=== PATIENT | male | born 1970 | race Caucasian/White ===

== ENCOUNTER 2020-04-17 08:54 | Outpatient (REF) | payer MEDICARE, SELFPAY ==
[2020-04-17 10:49] LABS: Alanine Aminotransferase 25 U/L (0-40); Albumin Level 4.3 g/dL (3.5-5.0); Alkaline Phosphatase 60 U/L (39-117); Anion Gap 11 (12-20); Aspartate Amino Transferase 21 U/L (5-37); Bilirubin Total 1.2 mg/dL (0.0-1.0); Blood Urea Nitrogen 16 mg/dL (9-16); Carbon Dioxide 30 mmol/L (22-29); Chloride 101 mmol/L (96-108); Cholesterol 120 mg/dL; Estimated Glomerular Filt Rate > 60; Glucose Fasting 100 mg/dL (60-99); HDL Cholesterol 44 mg/dL; LDL Cholesterol Calculated 68 mg/dl; Potassium 4.2 mmol/l (3.3-5.1); Sodium 138 mmol/L (135-145); Total Protein 7.3 g/dL (6.5-8.0); Triglycerides 44 mg/dL
[2020-04-17 10:54] LABS: Creatinine Urine 15.39 mg/dL; Microalbumin Urine < 5.0 mg/L
== END 2020-04-17 08:55 | disposition home or self-care (01) ==
LOC: HO.10HDL 08:54
PROVIDERS: Visit Provider Internal Medicine
DX: E11.9 Type 2 diabetes mellitus without complications (principal); E78.00 Pure hypercholesterolemia, unspecified
CPT/HCPCS: 80053; 80061; 82043

== ENCOUNTER 2020-11-13 08:55 | Outpatient (REF) | payer MEDICARE, MEDICAID, SELFPAY ==
[2020-11-13 10:24] LABS: MANUAL DIFF FLAG NO
[2020-11-13 10:31] LABS: Basophils Percent Auto 0.6 % (0-2); Eosinophils Absolute Auto 0.1 X10*3/uL (0.0-0.4); Eosinophils Percent Auto 2.6 % (0-4); Hematocrit 42.7 % (42-52); Hemoglobin 13.9 g/dl (14.0-18.0); Imm Gran Abs Auto 0.02 X10*3/uL (0.00-0.03); Imm Gran Pct Auto 0.4 % (0.0-0.4); Lymphocytes Absolute Auto 1.3 X10*3/uL (1.2-4.9); Lymphocytes Percent Auto 26.2 % (20-40); Mean Corpuscular HGB Conc 32.6 g/dl (31.0-36.0); Mean Corpuscular Hemoglobin 29.9 pg (27.0-33.0); Mean Corpuscular Volume 91.8 fL (80-98); Monocytes Absolute Auto 0.5 X10*3/uL (0.1-1.2); Monocytes Percent Auto 10.1 % (2-11); Neutrophils Percent Auto 60.1 % (45-73); Platelet Count 227 X10*3/uL (160-400); Red Blood Count 4.65 X10*6/uL (4.60-5.80)
[2020-11-13 10:43] LABS: Alanine Aminotransferase 23 U/L (0-40); Albumin Level 4.4 g/dL (3.5-5.0); Alkaline Phosphatase 65 U/L (39-117); Anion Gap 13 (12-20); Aspartate Amino Transferase 25 U/L (5-37); Bilirubin Total 1.6 mg/dL (0.0-1.0); Blood Urea Nitrogen 12 mg/dL (9-16); Calcium 9.7 mg/dL (8.4-10.2); Carbon Dioxide 29 mmol/L (22-29); Chloride 101 mmol/L (96-108); Cholesterol 113 mg/dL; Estimated Glomerular Filt Rate > 60; Glucose Fasting 99 mg/dL (60-99); HDL Cholesterol 43 mg/dL; LDL Cholesterol Calculated 57 mg/dl; Potassium 4.2 mmol/L (3.3-5.1); Sodium 139 mmol/L (135-145); Total Protein 7.5 g/dL (6.5-8.0); Triglycerides 66 mg/dL
[2020-11-13 10:55] LABS: Microalbumin Urine < 5.0 mg/L
[2020-11-18 11:52] LABS: Vitamin D 25-OH, D2 <4 ng/mL; Vitamin D 25-OH, D3 24 ng/mL; Vitamin D 25-OH, Total 24 ng/mL (30-100)
== END 2020-11-13 08:56 | disposition home or self-care (01) ==
LOC: HO.10HDL 08:55
PROVIDERS: Visit Provider Internal Medicine
DX: E11.9 Type 2 diabetes mellitus without complications (principal); E78.5 Hyperlipidemia, unspecified; E55.9 Vitamin D deficiency, unspecified; D64.9 Anemia, unspecified; K21.9 Gastro-esophageal reflux disease without esophagitis
CPT/HCPCS: 36415; 80053; 80061; 82043; 82306; 85025

== ENCOUNTER 2021-06-10 10:42 | Outpatient (REF) | payer MEDICARE, MEDICAID, SELFPAY ==
[2021-06-10 14:12] LABS: Estimated Average Glucose 126 mg/dL
[2021-06-10 14:23] LABS: Prostate Specific Antigen Scr 0.39 ng/mL (<0.05-4.0)
== END 2021-06-10 10:43 | disposition home or self-care (01) ==
LOC: HO.10HDL 10:42
PROVIDERS: Visit Provider Nurse Practitioner Family
DX: E11.9 Type 2 diabetes mellitus without complications (principal); Z12.5 Encounter for screening for malignant neoplasm of prostate
CPT/HCPCS: 36415; 83036; 84153

== ENCOUNTER → 2021-09-02 14:07 | Outpatient (BNVA) | payer MEDICARE, MEDICAID, SELFPAY | PROVIDERS: PCP Internal Medicine; Referring Provider Internal Medicine; Visit Provider Nurse Practitioner Family | DX: Z12.11 Encounter for screening for malignant neoplasm of colon (principal); K21.9 Gastro-esophageal reflux disease without esophagitis | CPT/HCPCS: 99202 ==

== ENCOUNTER 2021-12-23 10:24 | Outpatient (REF) | payer MEDICARE, MEDICAID, SELFPAY ==
[2021-12-23 14:11] LABS: Alanine Aminotransferase 38 U/L (0-40); Albumin Level 4.3 g/dL (3.5-5.0); Alkaline Phosphatase 66 U/L (39-117); Anion Gap 15 (12-20); Aspartate Amino Transferase 27 U/L (5-37); Bilirubin Total 1.5 mg/dL (0.0-1.0); Blood Urea Nitrogen 12 mg/dL (9-16); Carbon Dioxide 25 mmol/L (22-29); Chloride 103 mmol/L (96-108); Cholesterol 125 mg/dL; Estimated Glomerular Filt Rate > 60; Glucose Random 102 mg/dL (60-115); HDL Cholesterol 46 mg/dL; LDL Cholesterol Calculated 65 mg/dl; Potassium 4.3 mmol/L (3.3-5.1); Sodium 139 mmol/L (135-145); Total Protein 7.3 g/dL (6.5-8.0); Triglycerides 71 mg/dL
[2021-12-23 14:26] LABS: Thyroid Stimulating Hormone 0.97 uIU/mL (0.32-4.0); Vitamin D 25-OH Total 28.6 ng/mL (>30)
[2021-12-23 14:49] LABS: Creatinine Urine 35.44 mg/dL; Microalbumin Urine < 5.0 mg/L
== END 2021-12-23 10:25 | disposition home or self-care (01) ==
LOC: HO.10HDL 10:24
PROVIDERS: Visit Provider Internal Medicine
DX: L65.9 Nonscarring hair loss, unspecified (principal); E78.5 Hyperlipidemia, unspecified; E55.9 Vitamin D deficiency, unspecified; E11.9 Type 2 diabetes mellitus without complications
CPT/HCPCS: 36415; 80053; 80061; 82043; 82306; 84443

== ENCOUNTER 2022-09-16 09:01 | Outpatient (REF) | payer MEDICARE, MEDICAID, SELFPAY ==
[2022-09-16 11:02] LABS: Estimated Average Glucose 126 mg/dL
[2022-09-16 11:16] LABS: Alanine Aminotransferase 98 U/L (0-40); Albumin Level 4.1 g/dL (3.5-5.0); Alkaline Phosphatase 70 U/L (39-117); Anion Gap 15 (12-20); Aspartate Amino Transferase 71 U/L (5-37); Bilirubin Total 1.3 mg/dL (0.0-1.0); Blood Urea Nitrogen 11 mg/dL (9-16); Calcium 9.5 mg/dL (8.4-10.2); Carbon Dioxide 27 mmol/L (22-29); Chloride 100 mmol/L (96-108); Cholesterol 140 mg/dL; Estimated Glomerular Filt Rate > 60; Glucose Random 113 mg/dL (60-115); HDL Cholesterol 44 mg/dL; LDL Cholesterol Calculated 80 mg/dl; Potassium 4.4 mmol/L (3.3-5.1); Sodium 138 mmol/L (135-145); Total Protein 7.3 g/dL (6.5-8.0); Triglycerides 82 mg/dL
[2022-09-16 11:20] LABS: Vitamin D 25-OH Total 25.4 ng/mL (>30)
== END 2022-09-16 09:02 | disposition home or self-care (01) ==
LOC: HO.10HDL 09:01
PROVIDERS: Visit Provider Nurse Practitioner Family
DX: E78.00 Pure hypercholesterolemia, unspecified (principal); R79.89 Other specified abnormal findings of blood chemistry; E11.9 Type 2 diabetes mellitus without complications; E55.9 Vitamin D deficiency, unspecified
CPT/HCPCS: 36415; 80053; 80061; 82306; 83036

== ENCOUNTER 2022-10-23 09:54 | Outpatient (REF) | payer MEDICARE, MEDICAID, SELFPAY ==
--- NOTE | ~2022-10-23 | US_ITS ---
EXAMINATION: US ABDOMEN LIMITED CLINICAL INFORMATION: Other specified abnormal findings of blood chemistry. COMPARISON: Ultrasound abdomen 10/23/2013 and 07/31/2008. TECHNIQUE: Real-time imaging of the right upper quadrant abdominal viscera. Limited visualization due to bowel gas and body habitus. FINDINGS: PANCREAS: Limited visualization. LIVER: Hepatomegaly, 17.6 cm. Diffuse increase in echogenicity of the liver is characteristic of primary hepatocellular disease, possibly due to hepatic steatosis and further limits visualization. GALLBLADDER: No gallstones. COMMON BILE DUCT: Not visualized. RIGHT KIDNEY: No hydronephrosis. No renal calculi. Limited visualization. The kidney measures 11.5 cm in maximum dimension. FREE FLUID: None. US/US abdomen limited IMPRESSION: 1. Hepatomegaly, 17.6 cm. Diffuse increase in echogenicity of the liver is characteristic of primary hepatocellular disease, possibly due to hepatic steatosis and further limits visualization. 2. Limited visualization due to bowel gas and body habitus. CT scan should be considered for better visualization.
== END 2022-10-23 09:55 | disposition home or self-care (01) ==
LOC: HO.US 09:54
PROVIDERS: PCP Internal Medicine; Visit Provider Nurse Practitioner Family
DX: R79.89 Other specified abnormal findings of blood chemistry (principal)
CPT/HCPCS: 76705

== ENCOUNTER 2022-12-10 09:19 | Outpatient (REF) | payer MEDICARE, MEDICAID, SELFPAY ==
[2022-12-10 11:18] LABS: HBc Num1 0.07 S/CO (0.00-0.79); Hepatitis A Antibody IgM 0.21 Index (0-0.79); Hepatitis B Core Antibody Nonreactive (Nonreactive); Hepatitis B Surface Antigen Negative (Negative); ~HepC Num1 0.05 S/CO (0.00-0.79); ~Hepatitis A Antibody IgM Nonreactive (Nonreactive); ~Hepatitis B Surface Antibody REACTIVE (Nonreactive); ~Hepatitis C Antibody Nonreactive (Nonreactive)
[2022-12-10 11:27] LABS: Prostate Specific Antigen 0.47 ng/mL (<0.05-4.0)
== END 2022-12-10 09:20 | disposition home or self-care (01) ==
LOC: HO.LAB 09:19
PROVIDERS: PCP Internal Medicine; Visit Provider Nurse Practitioner Family
DX: Z12.5 Encounter for screening for malignant neoplasm of prostate (principal); R79.89 Other specified abnormal findings of blood chemistry
CPT/HCPCS: 36415; 84153; 86704; 86706; 86709; 86803; 87340

== ENCOUNTER 2022-12-16 10:55 | Outpatient (AMB) | payer MEDICARE, MEDICAID, SELFPAY ==
--- NOTE | 2022-12-16 11:04 | MHC.PC.OV ---
Vital Signs 12/16/22 11:05 12/16/22 11:44 Height 5 ft 5 in Weight 184 lb BMI 30.6 BP 96/60 108/70 Blood Pressure Location Lt brachial Lt brachial Position Sitting Sitting Pulse 112 H Pulse Source Pulse Oximeter Temp Source Skin Pulse Oximetry (%) 97 Oxygen Delivery Method Room Air Intake Visit Reasons: 3 month f/u Collections Director Required: Yes Collections Director Language: Mongolian Allergies No Known Allergies Allergy (Verified 12/16/22 11:33) Medication List - Last Reconciled 12/16/22 by MARIE Guaman atorvastatin 40 mg PO DAILY bisacodyl (Dulcolax (bisacodyl)) 10 mg (2 x 5 mg) PO ONCE 1 day blood sugar diagnostic (FreeStyle Lite Strips) Use 1 test strip once a day blood sugar diagnostic (Accu-Chek Guide test strips) Use 1 test strip once a day blood-glucose meter (FreeStyle Lite Meter kit) As directed blood-glucose meter (Accu-Chek Guide Glucose Meter) As directed cholecalciferol (vitamin D3) 25 mcg PO DAILY 90 days fluticasone propionate 50 mcg/actuation (Flonase Allergy Relief) 1 spray intranasal DAILY 14 days lancets (FreeStyle Lancets) Use 1 lancet once a day lancets (Accu-Chek Softclix Lancets) Use 1 lancet once a day lisinopril 2.5 mg PO DAILY metformin 500 mg PO BID omeprazole 20 mg PO DAILY polyethylene glycol 3350 (Miralax) 238 grams PO ONCE risperidone 4 mg PO DAILY Tobacco use date assessed: 12/16/22 Dental Screening Dental Screen Date: 12/16/22 Did you have a dental visit in the last 12 months?: Yes Did you have a dental problem in the last 6 months where you did not have access to dental care?: No Was dental information given to patient?: Patient has dentist HPI 3 month f/u HPI Details Patient is a 52-year-old male who presents today for a routine follow-up.? Patient of Dr. Ospina.? Medical history significant for low vitamin-D level, depression, hypertension, developmental delay, GERD, hypercholesterolemia, and diabetes.? Patient is compliant with medications. Patient denies shortness of breath or chest pain.? Patient reports that he is followed by therapist and psychiatrist for his mental health.? Recent blood work was reviewed with the patient.? 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 ? ? [facility] Medical History Depression Developmental delay, mild Diabetes mellitus Essential hypertension GERD (gastroesophageal reflux disease) Hair loss Mild recurrent major depression Pure hypercholesterolemia Surgical History No pertinent past surgical history Family History Father Prostate cancer Mother Hypertension Family/Other FH: mental illness Maternal Grandmother No problems noted. Maternal Grandfather No problems noted. Paternal Grandmother No problems noted. Paternal Grandfather No problems noted. Social History Housing: Apartment Alcohol intake: never Patient Tobacco Use Status: Never used Tobacco e-Cigarette/Vaping Use: Never Used Second Hand Smoke Exposure: No service: No Current occupational status: disabled Cognitive needs: No Hearing needs: No Vision needs: No Questionnaire Thrive Questionnaire Date Thrive assessed: 09/16/22 AUDIT C Alcohol Use Questionnaire (AUDIT-C) 1. How often do you have a drink containing alcohol?: Never 3. How often do you have six or more drinks on one occasion?: Never Total Score: 0 Score Reviewed/Action Taken: No FABIENNE-7 AMB Questionnaire FABIENNE-7 Date FABIENNE - 7 assessed: 09/16/22 Source: Developed by Drs. Brandon Kim, Megan Murrieta, Vic Reyez and colleagues, with an educational nicholas from [employer]. Review of Systems Const Denies body aches, Denies chills, Denies fever(s) and Denies headache(s) Eyes Denies change in vision ENT Denies dizziness, Denies otalgia, Denies headache(s), Denies nasal discharge, Reports post nasal drip, Denies sinus pain and Denies sore throat Card Denies chest pain, Denies edema, Denies lightheadedness and Denies dyspnea Resp Denies chest congestion, Denies cough and Denies dyspnea GI Denies abdominal pain, Denies constipation, Denies diarrhea, Denies nausea and Denies vomiting Denies dysuria Musc Denies myalgias Skin/Breast Denies rash Neuro Denies dizziness and Denies headache(s) Physical exam (Primary Care) Vital Signs: Last Vital Signs Pulse 112 H 12/16/22 11:05 BP 96/60 12/16/22 11:05 Pulse Ox 97 12/16/22 11:05 Oxygen Delivery Method Room Air 12/16/22 11:05 BMI result Body Mass Index 30.6 Tobacco/Smoking Status: Tobacco use Status Tobacco use date assessed 12/16/22 12/16/22 11:12 Patient Tobacco Use Status Never used Tobacco 12/16/22 11:12 Tobacco use type 06/04/22 15:18 e-Cigarette/Vaping Use Never Used 12/16/22 11:12 Thrive Assessment: Date of Thrive Assessment Date Thrive assessed 09/16/22 12/16/22 11:12 Const General: cooperative and no acute distress Orientation/consciousness: patient oriented x3 HENMT Head: Yes normocephalic and Yes atraumatic Throat: Yes posterior oropharynx normal Eyes General: appearance normal, both eyes and all related structures Neck Neck: Yes normal visual inspection, Yes full ROM and Yes no lymphadenopathy Resp Effort & Inspection: normal respiratory effort and able to speak in complete sentences Auscultation: clear to auscultation bilaterally, no crackles, no rales, no rhonchi and no wheezes Cardio Rate: regular rate Rhythm: regular rhythm Heart sounds: S1 normal heart sound present and S2 normal heart sound present GI Auscultation: normal bowel sounds Skin General skin exam: no rashes or lesions noted Neuro General: patient oriented x3 Gait exam (Neuro): Normal gait present Extrem General: Yes full ROM and No edema Results AMB Hemoglobin A1c AMB Hemoglobin A1c 6.3 % Last Edit by HELEN Pompa on 12/16/22 11:27 Results Reviewed Results Reviewed: Laboratory Last Values Hgb A1c (Clinic) 6.3 % (4.0-6.0) H 12/16/22 10:59 Assessment and Plan Assessment & Plan (1) Essential hypertension: Code(s): I10 - Essential (primary) hypertension Plan: Continue current treatment Goal BP equal or less than 140/90 Low-sodium diet (2) Depression: Code(s): F32.9 - Major depressive disorder, single episode, unspecified Qualifiers: Depression Type: major depressive disorder Major depression recurrence: recurrent Active/Remission status: currently active Major depression episode severity: mild Qualified Code(s): F33.0 - Major depressive disorder, recurrent, mild Plan: Continue to follow-up with therapy and psychiatrist (3) GERD (gastroesophageal reflux disease): Code(s): K21.9 - Gastro-esophageal reflux disease without esophagitis Qualifiers: Esophagitis presence: esophagitis presence not specified Qualified Code(s): K21.9 - Gastro-esophageal reflux disease without esophagitis Plan: Continue omeprazole 20 mg daily Avoid GERD trigger foods Do not lay down 2-3 hours after evening meal (4) Pure hypercholesterolemia: Code(s): E78.00 - Pure hypercholesterolemia, unspecified Plan: Continue atorvastatin 40 mg daily Low-cholesterol diet (5) Diabetes mellitus: Code(s): E11.9 - Type 2 diabetes mellitus without complications Qualifiers: Diabetes mellitus type: type 2 Diabetes mellitus group home insulin use: without watermelon inspector use Diabetes mellitus complication status: without complication Qualified Code(s): E11.9 - Type 2 diabetes mellitus without complications Plan: A1c 6.3 today Continue current treatment Low-carbohydrate diet (6) Hepatomegaly: Code(s): R16.0 - Hepatomegaly, not elsewhere classified Plan: Will follow-up on GI referral. Plan Follow-up with PCP in 4 months or sooner as needed Orders: Orders Comprehensive [place]. Panel Fast Today E11.9 - Type 2 diabetes mellitus without complications Lipid Panel Today E11.9 - Type 2 diabetes mellitus without complications TSH reflex Free T4 Today E11.9 - Type 2 diabetes mellitus without complications Microalbumin, Random (w Creat) Today E11.9 - Type 2 diabetes mellitus without complications AMB Hemoglobin A1c Today E11.9 - Type 2 diabetes mellitus without complications Medications: Refilled fluticasone propionate 50 mcg/actuation (Flonase Allergy Relief) administer into each nostril 1 spray intranasal DAILY 14 days 100 mL 0RF J30.9 - Allergic rhinitis, unspecified Coding Level of Care Code Est Pt Level 4 (02385) Diagnoses Essential hypertension I10 Depression F33.0 Depression Type: major depressive disorder Major depression recurrence: recurrent Active/Remission status: currently active Major depression episode severity: mild GERD (gastroesophageal reflux disease) K21.9 Esophagitis presence: esophagitis presence not specified Pure hypercholesterolemia E78.00 Diabetes mellitus E11.9 Diabetes mellitus type: type 2 Diabetes mellitus group home insulin use: without watermelon inspector use Diabetes mellitus complication status: without complication Hepatomegaly R16.0
[2022-12-16 11:05] VITALS: BP 96/60; PULSE 112; O2SAT 97; BMI 30.6
[2022-12-16 11:44] VITALS: BP 108/70
== END 2022-12-16 11:52 | disposition home or self-care (01) ==
PROVIDERS: PCP Internal Medicine; Visit Provider Nurse Practitioner Family
DX: I10 Essential (primary) hypertension (principal); F33.0 Major depressive disorder, recurrent, mild; K21.9 Gastro-esophageal reflux disease without esophagitis; E11.9 Type 2 diabetes mellitus without complications; E78.00 Pure hypercholesterolemia, unspecified; R16.0 Hepatomegaly, not elsewhere classified
CPT/HCPCS: 83036; 99214

== ENCOUNTER 2023-02-08 08:56 | Outpatient (AMB) | payer MEDICARE, MEDICAID, SELFPAY ==
--- NOTE | 2023-02-08 08:58 | A.OFFVIS_ITS ---
Intake Vital Signs 02/08/23 08:59 Height 5 ft 5 in Weight 190 lb 7.67 oz BMI 31.7 BP 118/78 Blood Pressure Location Lt brachial Position Sitting Pulse 122 H Intake Visit Reasons: hepatomegaly/GERD Intake Note: Patient presents in office today for a hepatomegaly and GERD. CC: Patient reports Dr. Ospina prescribed Omeprazole for acid reflux and he is doing well on this medication. He states that he did not have colonoscopy done because he did not feel ready. Denies other GI symptoms today. Medical Equipment Technician Required: Yes Accompanied by: Self / Same As Patient Allergies No Known Allergies Allergy (Verified 12/16/22 11:33) HPI hepatomegaly/GERD HPI Details LAST VISIT AUGUST 2021 Colon cancer screening Patient denies any GI, cardiac or respiratory symptoms.? Denies any issues with anesthesia in the past.? Denies any history of sleep apnea.? No history infectious diseases in the past or present.? Not on any anticoagulation therapy.? No family or personal history of colon cancer or polyps.? Patient denies melena, hematochezia, unintentional weight loss or ribbon like stools.? Discussed at length the pre-procedure,? prep, diet & medications as well as what to expect prior, during and after the procedure.?? Stressed the importance of good bowel prep. ?Recommended the use of Vaseline or Calmoseptine OTC & baby wipes with bowel movements to promote comfort.? ?Patient verbalizes un derstanding and agrees to plan of care.? He was given the opportunity to ask questions and all questions answered.? We will see hIM after the procedure.? GERD (gastroesophageal reflux disease) Symptoms of acid reflux are currently suppressed with omeprazole. Patient also was encouraged to avoid dietary triggers and late night snacking. Staying upright for minimal 3 hours after meals. Continue omeprazole Plan Medications New bisacodyl (Dulcolax (bisacodyl)) take 2 tabs at noon the day before your colonoscopy 10 mg (2 x 5 mg) PO ONCE 1 day 2 tabs 0RF Z12.11 polyethylene glycol 3350 (Miralax) As directed by gastroenterology department at [facility] 238 grams PO ONCE 238 grams 0RF Z12.11 TODAY'S VISIT 52-year-old male with past medical histo ry GERD, dysphagia, depression, hypertension, diabetes, hypercholesteremia is here today to discuss recent elevation in his liver enzymes. Patient was seen by me last year in August for pre colonoscopy screening, however patient was not ready to go for colonoscopy and has not book one yet. Patient has been under a lot of stress at home. Reports that his mother suffers from dementia. Recent increase in liver function AST 71, ALT 98. Patient reports that he gained few lb in the last couple years (14 lbs in one year). Patient denies drinking alcohol. In November of 2021 he had normal liver function. In August of this year his liver function were elevated see above. Patient was sent for abdominal ultrasound that showed possible hepatic steatosis. Patient denies any family history of liver cancer liver cirrhosis. Patient denies any abdominal pain or discomfort. Patient reports that his acid reflux symptoms are suppressed with omeprazole. Patient denies any nausea or vomiting. Denies any melena, hematochezia, unintentional weight loss or ribbon like stools. Patient denies any dyspepsia, dysphagia or odynophagia. [facility] Medical History Mild recurrent major depression Hair loss Essential hypertension Developmental delay, mild Depression GERD (gastroesophageal reflux disease) Pure hypercholesterolemia Diabetes mellitus Surgical History No pertinent past surgical history Family History Father Prostate cancer Mother Hypertension Family/Other FH: mental illness Maternal Grandmother No problems noted. Maternal Grandfather No problems noted. Paternal Grandmother No problems noted. Paternal Grandfather No problems noted. Social History Housing: Apartment Alcohol intake: never Patient Tobacco Use Status: Never used Tobacco e-Cigarette/Vaping Use: Never Used Second Hand Smoke Exposure: No service: No Current occupational status: disabled Cognitive needs: No Hearing needs: No Vision needs: No Review of Systems Const Denies weight gain and Denies weight loss ENT Reports no additional complaints, Denies dysphagia and Denies odynophagia Card Reports no additional complaints Resp Reports no additional complaints GI Denies abdominal pain, Denies belching, Denies melena, Denies bloating, Denies change in bowel habits, Denies dysphagia, Denies excessive flatus, Denies dyspepsia, Denies heartburn, Denies diarrhea, Denies loose stools, Denies nausea, Denies odynophagia and Denies vomiting Reports no additional complaints Musc Reports no additional complaints Neuro Reports no additional complaints Psych Reports no additional complaints Endo Reports no additional complaints Physical Exam Vital Signs: Last Vital Signs Pulse 122 H 02/08/23 08:59 BP 118/78 02/08/23 08:59 BMI result Body Mass Index 31.7 Const General: healthy appearing, no acute distress and well developed Nutritional Appearance: obese Orientation/consciousness: patient oriented x3 HEENT Head: Yes normal to inspection, Yes normocephalic and Yes atraumatic Face and sinus: Yes normal facial exam Mouth: Normal oral and palatal mucosa present Throat: Yes posterior oropharynx normal, Yes tonsils normal and Yes uvula midline Eyes General: appearance normal, both eyes and all related structures Neck Neck: Yes normal visual inspection, Yes full ROM and Yes trachea midline Thyroid: Thyroid normal Resp Effort & Inspection: normal respiratory effort, able to speak in complete sentences, no tracheal deviation and symmetric chest movement Auscultation: clear to auscultation bilaterally Cardio Rate: regular rate Heart sounds: S1 normal heart sound present and S2 normal heart sound present GI Inspection: Yes normal to inspection, No distended and Yes obesity Palpation (GI): Soft to palpation, not firm, nontender and No hepatosplenomegaly present Auscultation: normal bowel sounds General: Yes no CVA tenderness Back/Spine/Pelvis Back: no CVA tenderness Skin General skin exam: elasticity normal, turgor normal and dry skin Neuro General: patient oriented x3 Psych Appearance: grossly normal Speech and movement: Normal speech and movement present Results Reviewed Results Reviewed: Laboratory Tests 12/23/21 09/16/22 10:30 09:06 Total Bilirubin 1.5 H 1.3 H AST 27 71 H ALT 38 98 H ABDOMINAL ULTRASOUND SEPTEMBER OF 2022 FINDINGS: PANCREAS: Limited visualization. LIVER: Hepatomegaly, 17.6 cm. Diffuse increase in echogenicity of the liver is characteristic of primary hepatocellular disease, possibly due to hepatic steatosis and further limits visualization. GALLBLADDER: No gallstones. COMMON BILE DUCT: Not visualized. RIGHT KIDNEY: No hydronephrosis. No renal calculi. Limited visualization. The kidney measures 11.5 cm in maximum dimension. FREE FLUID: None. US/US abdomen limited IMPRESSION: 1. Hepatomegaly, 17.6 cm. Diffuse increase in echogenicity of the liver is characteristic of primary hepatocellular disease, possibly due to hepatic steatosis and further limits visualization. 2. Limited visualization due to bowel gas and body habitus. CT scan should be considered for better visualization. Assessment & Plan Assessment & Plan (1) Elevated LFTs: Code(s): R79.89 - Other specified abnormal findings of blood chemistry (2) GERD (gastroesophageal reflux disease): Code(s): K21.9 - Gastro-esophageal reflux disease without esophagitis Qualifiers: Esophagitis presence: esophagitis presence not specified Qualified Code(s): K21.9 - Gastro-esophageal reflux disease without esophagitis Plan Patient was encouraged to continue avoiding food that is high in fat. Patient was encouraged to exercise and try to lose weight. Control his blood sugars. Patient was encouraged to avoid dietary triggers and late night snacking. Staying upright for minimal 3 hours after meals discussed with patient. Continue taking omeprazole in the morning. Patient was encouraged to get his lab work done today. Will rule out autoimmune disorders. I will see patient in 3 months we will discuss going for colonoscopy again. Patient is agreeable to this plan and verbalizes understanding of instructions. He was given the opportunity to ask questions and all questions answered. Thank you for allowing me to participate in his care Orders: Orders Vitamin D 25-OH (D2 and D3) Today E55.9 - Vitamin D deficiency, unspecified Alpha Fetoprotein Today R79.89 - Other specified abnormal findings of blood chemistry Bilirubin Direct Today R17 - Unspecified jaundice Liver Fibrosis Pnl Today R74.8 - Abnormal levels of other serum enzymes IRON PROFILE Today D64.9 - Anemia, unspecified Prothrombin Time INR Today R74.8 - Abnormal levels of other serum enzymes Liver Panel Today R10.9 - Unspecified abdominal pain Vitamin B12 and Folate Today R19.7 - Diarrhea, unspecified Ferritin Today R74.8 - Abnormal levels of other serum enzymes Bilirubin Total Today R10.9 - Unspecified abdominal pain C Reactive Protein Today K58.9 - Irritable bowel syndrome without diarrhea Ceruloplasmin Today R79.89 - Other specified abnormal findings of blood chemistry Mitochondrial Antibody Today R79.89 - Other specified abnormal findings of blood chemistry Smooth Muscle Antibody Today R79.89 - Other specified abnormal findings of blood chemistry Coding Level of Care Code Est Pt Level 4 (72920) Diagnoses Elevated LFTs R79.89 Gastroesophageal reflux disease, unspecified whether esophagitis present K21.9 Esophagitis presence: esophagitis presence not specified Time Spent (min) 35 Comment 20 minutes spent in patient and additional 15 minutes spent reviewing his records
[2023-02-08 08:59] VITALS: BP 118/78; PULSE 122; BMI 31.7
== END 2023-02-08 09:35 | disposition home or self-care (01) ==
PROVIDERS: PCP Internal Medicine; Visit Provider Nurse Practitioner Family
DX: R79.89 Other specified abnormal findings of blood chemistry (principal); K21.9 Gastro-esophageal reflux disease without esophagitis
CPT/HCPCS: 99214

== ENCOUNTER → 2023-02-08 08:56 | Outpatient (BNVA) | payer MEDICARE, MEDICAID, SELFPAY | PROVIDERS: PCP Internal Medicine; Visit Provider Nurse Practitioner Family | DX: G21.9 Secondary parkinsonism, unspecified (principal); R79.89 Other specified abnormal findings of blood chemistry; R17 Unspecified jaundice; R10.9 Unspecified abdominal pain; K58.9 Irritable bowel syndrome, unspecified; R74.8 Abnormal levels of other serum enzymes; D64.9 Anemia, unspecified; R19.7 Diarrhea, unspecified; E55.9 Vitamin D deficiency, unspecified; R74.01 Elevation of levels of liver transaminase levels; K76.0 Fatty (change of) liver, not elsewhere classified | CPT/HCPCS: 36415; 80076; 81596; 82105; 82306; 82390; 82607; 82728; 82746; 83540; 85610; 86015; 86140; 86381; 99212 ==

== ENCOUNTER 2023-02-08 09:54 | Outpatient (REF) | payer MEDICARE, MEDICAID, SELFPAY ==
[2023-02-08 10:51] LABS: INTERNATIONAL NORM RATIO 0.9 (0.9-1.1); Prothrombin Time 10.7 SEC (11.1-13.3)
[2023-02-08 13:02] LABS: Vitamin B12 < 148 pg/mL (200-900)
[2023-02-08 13:05] LABS: Alanine Aminotransferase 51 U/L (0-40); Albumin Level 4.3 g/dL (3.5-5.0); Alkaline Phosphatase 66 U/L (39-117); Aspartate Amino Transferase 33 U/L (5-37); Bilirubin Direct 0.3 mg/dL (0.0-0.5); C Reactive Protein < 0.10 mg/dL (< or = 0.50); Ferritin 46 ng/mL (20-250); Iron 83 mcg/dL (45-160); Percent Iron Saturation 28 % (15-50); Total Iron Binding Capacity 292 mcg/dL (228-428); Total Protein 7.4 g/dL (6.5-8.0); Unsaturated Iron Binding 209 ug/dL
[2023-02-09 13:18] LABS: Alpha Fetoprotein 4.5 ng/mL (<6.1)
[2023-02-09 15:43] LABS: Mitochondrial Antibodies NEGATIVE (NEGATIVE)
[2023-02-09 16:18] LABS: Ceruloplasmin 20 mg/dL (18-36)
[2023-02-11 12:19] LABS: Smooth Muscle Antibody <20 U (<20)
[2023-02-14 14:13] LABS: Vitamin D 25-OH, D2 <4 ng/mL; Vitamin D 25-OH, D3 16 ng/mL; Vitamin D 25-OH, Total 16 ng/mL (30-100)
[2023-02-16 15:03] LABS: FIB-ALT 43 U/L (9-46); FIB-Alpha-2-Macroglobulin 159 mg/dL (106-279); FIB-Apolipoprotein A1 140 mg/dL (94-176); FIB-GGT 42 U/L (3-95); FIB-Haptoglobin 192 mg/dL (43-212); FIB-Total Bilirubin 0.7 mg/dL (0.2-1.2); Liver Fibrosis Score 0.21; Liver Fibrosis Stage F0; Nec Inflam Act Grade A0-A1; Nec Inflam Act Score 0.22
== END 2023-02-08 09:55 | disposition home or self-care (01) ==
LOC: HO.10HDL 09:54
PROVIDERS: Visit Provider Nurse Practitioner Family
DX: Z13.89 Encounter for screening for other disorder (principal)
CPT/HCPCS: 36415; 80076; 81596; 82105; 82306; 82390; 82607; 82728; 82746; 83540; 85610; 86015; 86140; 86381

== ENCOUNTER 2023-07-05 08:54 | Outpatient (REF) | payer MEDICARE, MEDICAID, SELFPAY ==
[2023-07-05 11:35] LABS: Alanine Aminotransferase 76 U/L (0-40); Albumin Level 4.2 g/dL (3.5-5.0); Alkaline Phosphatase 68 U/L (39-117); Anion Gap 12 (12-20); Aspartate Amino Transferase 50 U/L (5-37); Bilirubin Total 0.8 mg/dL (0.0-1.0); Blood Urea Nitrogen 13 mg/dL (9-16); Calcium 9.4 mg/dL (8.4-10.2); Carbon Dioxide 28 mmol/L (22-29); Chloride 104 mmol/L (96-108); Cholesterol 101 mg/dL (<200); Estimated Glomerular Filt Rate > 60; Glucose Fasting 129 mg/dL (60-99); HDL Cholesterol 36 mg/dL (>40); LDL Cholesterol Calculated 51 mg/dL (<100); Sodium 140 mmol/L (135-145); Total Protein 7.6 g/dL (6.5-8.0); Triglycerides 72 mg/dL (<150)
[2023-07-05 11:43] LABS: Microalbumin Urine < 5.0 mg/L
[2023-07-05 11:53] LABS: TSH reflex Free T4 1.43 uIU/mL (0.32-4.0)
== END 2023-07-05 08:55 | disposition home or self-care (01) ==
LOC: HO.10HDL 08:54
PROVIDERS: Visit Provider Nurse Practitioner Family
DX: E11.9 Type 2 diabetes mellitus without complications (principal)
CPT/HCPCS: 36415; 80053; 80061; 82043; 82570; 84443

== ENCOUNTER 2023-07-05 15:31 | Outpatient (AMB) | payer MEDICARE, MEDICAID, SELFPAY ==
--- NOTE | 2023-07-05 15:41 | MHC.PC.OV ---
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 Required: No Accompanied by: Self / Same As Patient Allergies No Known Allergies Allergy (Verified 07/05/23 16:02) Medication List - Last Reconciled 07/05/23 by Heather Ashraf MD atorvastatin 40 mg PO DAILY bisacodyl (Dulcolax (bisacodyl)) 10 mg (2 x 5 mg) PO ONCE 1 day blood sugar diagnostic (FreeStyle Lite Strips) Use 1 test strip once a day blood sugar diagnostic (Accu-Chek Guide test strips) Use 1 test strip once a day blood-glucose meter (FreeStyle Lite Meter kit) As directed blood-glucose meter (Accu-Chek Guide Glucose Meter) As directed cholecalciferol (vitamin D3) 25 mcg PO DAILY 90 days lancets (FreeStyle Lancets) Use 1 lancet once a day lancets (Accu-Chek Softclix Lancets) Use 1 lancet once a day lisinopril 2.5 mg PO DAILY metformin 500 mg PO BID omeprazole 20 mg PO DAILY polyethylene glycol 3350 (Miralax) 238 grams PO ONCE risperidone 4 mg PO DAILY Tobacco use date assessed: 07/05/23 Dental Screening Dental Screen Date: 07/05/23 Did you have a dental visit in the last 12 months?: Yes Did you have a dental problem in the last 6 months where you did not have access to dental care?: No Was dental information given to patient?: Patient has dentist HPI HPI Comments History of Present Illness Details This is a 52-year-old male with diabetes mellitus type 2, hypertension, pure hypercholesterolemia, GERD and low vitamin-D that comes today for follow-up on his conditions. A1c elevated and I will add Actos. Blood pressure stable. LDL within goal. GERD stable with PPIs as needed. Vitamin-D supplements for his low vitamin-D. He denies any chest pain or shortness breath. COUNT INCLUDES [facility] Medical History (Updated 07/05/23 @ 16:13 by Heather Ashraf MD) Mild recurrent major depression Hair loss Essential hypertension Developmental delay, mild Depression GERD (gastroesophageal reflux disease) Pure hypercholesterolemia Diabetes mellitus Surgical History History of tooth extraction Family History Father Prostate cancer Mother Hypertension Family/Other FH: mental illness Maternal Grandmother No problems noted. Maternal Grandfather No problems noted. Paternal Grandmother No problems noted. Paternal Grandfather No problems noted. Social History Housing: Apartment Alcohol intake: never Patient Tobacco Use Status: Never used Tobacco e-Cigarette/Vaping Use: Never Used Second Hand Smoke Exposure: No service: No Current occupational status: disabled Cognitive needs: No Hearing needs: No Vision needs: No Questionnaire PHQ-9 Over the last 2 weeks, how often have you been bothered by any of the following problems? 1. Little interest or pleasure in doing things: not at all 2. Feeling down, depressed, or hopeless: not at all 3. Trouble falling or staying asleep, or sleeping too much: not at all 4. Feeling tired or having little energy: not at all 5. Poor appetite or overeating: not at all 6. Feeling bad about yourself - or that you are a failure or have let yourself or your family down: not at all 7. Trouble concentrating on things, such as reading the newspaper or watching television: not at all 8. Moving or speaking so slowly that other people could have noticed. Or the opposite - being so fidgety or restless that you have been moving around a lot more than usual: not at all 9. Thoughts that you would be better off or of hurting yourself in some way: not at all Total score: 0 Depression Screening Interpretation: Negative Depression Screening Done: Yes 87962 - PHQ-9 Billing: Yes Source: Developed by Drs. Brandon Kim, Megan Murrieta, Vic Reyez and colleagues, with an educational nicholas from [employer]. Thrive Questionnaire Date Thrive assessed: 07/05/23 I am a: Patient What is your living situation today?: I have a steady place to live Within the past 12 months, did the food you bought not last and you didn't have the money to get more?: Never true Within the past 12 months, did you worry whether your food would run out before you got money to buy more?: Never true Do you have trouble paying for medicines?: No Do you have trouble getting transportation to medical appointments?: No Do you have trouble paying your heating and electricity bill?: No Do you have trouble taking care of your child, family member or friend?: No Do you have trouble with day-to-day activities such as bathing, preparing meals, shopping, managing finances, etc.?: No Are you currently unemployed and looking for a job?: No Are you interested in more education?: No Please select the resources that you would like help with: None Currently or been in a relationship where the following occur: no concerns reported THRIVE Score: 0 AUDIT C Alcohol Use Questionnaire (AUDIT-C) 1. How often do you have a drink containing alcohol?: Never Total Score: 0 FABIENNE-7 AMB Questionnaire FABIENNE-7 Date FABIENNE - 7 assessed: 07/05/23 Feeling nervous, anxious, or on edge: 1 = Several days Not being able to stop or control worryin = Not at all Worrying too much about different things: 0 = Not at all Trouble relaxin = Not at all Being so restless that it is hard to sit still: 0 = Not at all Becoming easily annoyed or irritable: 0 = Not at all Feeling afraid as if something awful might happen: 0 = Not at all Total FABIENNE-7 score (0-4 normal; 5-9 mild; 10-14 moderate; 15-21 severe): 1 Source: Developed by Drs. Brandon Kim, Megan Murrieta, Vic Reyez and colleagues, with an educational nicholas from [employer]. FABIENNE-7 Assessment Billing FABIENNE-7 Assessment Tool: FABIENNE-7 Assessment 51037 Review of Systems Const All systems reviewed & are unremarkable except as noted in HPI and below Eyes Reports no additional complaints, Denies change in vision and Denies other visual disturbances Card Denies chest pain at rest, Denies chest pain with activity, Denies edema, Denies irregular heart rhythm, Denies claudication, Denies dyspnea, Denies dyspnea on exertion, Denies orthopnea, Denies paroxysmal nocturnal dyspnea and Denies slow heart rate Resp Denies cough, Denies dyspnea and Denies dyspnea on exertion GI Denies abdominal pain, Denies change in bowel habits, Denies excessive flatus, Denies nausea and Denies vomiting Denies urinary hesitancy, Denies urinary incontinence and Denies urinary urgency Musc Denies abnormal gait, Denies atrophy, Denies deformity and Denies limited range of motion Skin/Breast Denies bleeding lesions, Denies changing lesions and Denies rash Neuro Denies abnormal gait, Denies behavioral changes and Denies lack of coordination Psych Denies behavioral changes Physical exam (Primary Care) Vital Signs: Last Vital Signs BP 118/80 07/05/23 15:42 BMI result Body Mass Index 31.5 Tobacco/Smoking Status: Tobacco use Status Tobacco use date assessed 07/05/23 07/05/23 15:55 Patient Tobacco Use Status Never used Tobacco 07/05/23 15:55 Tobacco use type 02/08/23 09:36 e-Cigarette/Vaping Use Never Used 07/05/23 15:55 Depression Screening Interpretation: Negative Thrive Assessment: Date of Thrive Assessment Date Thrive assessed 07/05/23 07/05/23 15:55 Currently or been in a relationship where the following occur: no concerns reported Eyes General: appearance normal, both eyes and all related structures Eyelids: Yes eyelids normal Conjunctivae: conjunctivae normal Neck Neck: Yes normal visual inspection and Yes supple Resp Effort & Inspection: normal respiratory effort Auscultation: clear to auscultation bilaterally Cardio Jugular venous distension: no JVD Rate: regular rate Rhythm: regular rhythm Heart sounds: S1 normal heart sound present and S2 normal heart sound present Extrem General: Yes full ROM Results AMB Hemoglobin A1c AMB Hemoglobin A1c 7.2 % Last Edit by HELEN Crews on 07/05/23 15:57 Results Reviewed Results Reviewed: Laboratory Last Values Hgb A1c (Clinic) 7.2 % (4.0-6.0) H 07/05/23 15:41 Assessment and Plan Assessment & Plan (1) Diabetes mellitus: Code(s): E11.9 - Type 2 diabetes mellitus without complications Qualifiers: Diabetes mellitus type: type 2 Diabetes mellitus fci insulin use: without lot technician use Diabetes mellitus complication status: without complication Qualified Code(s): E11.9 - Type 2 diabetes mellitus without complications Plan: Continue metformin. Start Actos. A1c goal is equal or less than 7%. (2) Pure hypercholesterolemia: Code(s): E78.00 - Pure hypercholesterolemia, unspecified Plan: Continue statins. LDL goal is less than 70. (3) Essential hypertension: Code(s): I10 - Essential (primary) hypertension Plan: Continue lisinopril. Blood pressure goal is equal or less than 130/80. (4) GERD (gastroesophageal reflux disease): Code(s): K21.9 - Gastro-esophageal reflux disease without esophagitis Qualifiers: Esophagitis presence: esophagitis presence not specified Qualified Code(s): K21.9 - Gastro-esophageal reflux disease without esophagitis Plan: Continue PPIs. (5) Low vitamin D level: Code(s): R79.89 - Other specified abnormal findings of blood chemistry Plan: Continue vitamin-D supplement. Orders: Orders Vitamin D 25-OH Total 4 Months E55.9 - Vitamin D deficiency, unspecified Comprehensive [place]. Panel Fast 4 Months E11.9 - Type 2 diabetes mellitus without complications AMB Hemoglobin A1c Today E11.9 - Type 2 diabetes mellitus without complications Lipid Panel 4 Months E78.5 - Hyperlipidemia, unspecified Microalbumin, Random (w Creat) 4 Months E11.9 - Type 2 diabetes mellitus without complications Medications: New pioglitazone 15 mg PO DAILY 90 days 90 tabs 1RF E11.9 - Type 2 diabetes mellitus without complications Coding Level of Care Code Est Pt Level 4 (32382) Diagnoses Type 2 diabetes mellitus without complication, without long-term current use of insulin E11.9 Diabetes mellitus type: type 2 Diabetes mellitus lot technician insulin use: without lot technician use Diabetes mellitus complication status: without complication Pure hypercholesterolemia E78.00 Essential hypertension I10 Gastroesophageal reflux disease, unspecified whether esophagitis present K21.9 Esophagitis presence: esophagitis presence not specified Low vitamin D level R79.89 Additional Codes FABIENNE-7 Assessment Billing - FABIENNE-7 Assessment Tool: FABIENNE-7 Assessment [id number] ([id number]) Time Spent (min) 23
[2023-07-05 15:42] VITALS: BP 118/80; BMI 31.5
== END 2023-07-05 16:11 | disposition home or self-care (01) ==
PROVIDERS: PCP Internal Medicine; Visit Provider Internal Medicine
DX: E11.9 Type 2 diabetes mellitus without complications (principal); E78.00 Pure hypercholesterolemia, unspecified; I10 Essential (primary) hypertension; K21.9 Gastro-esophageal reflux disease without esophagitis; R79.89 Other specified abnormal findings of blood chemistry
CPT/HCPCS: 83036; 99214

== ENCOUNTER 2023-11-09 08:54 | Outpatient (REF) | payer MEDICARE, MEDICAID, SELFPAY ==
[2023-11-09 10:46] LABS: Alanine Aminotransferase 51 U/L (0-40); Albumin Level 4.2 g/dL (3.5-5.0); Alkaline Phosphatase 72 U/L (39-117); Anion Gap 13 (12-20); Aspartate Amino Transferase 35 U/L (5-37); Bilirubin Total 1.1 mg/dL (0.0-1.0); Blood Urea Nitrogen 11 mg/dL (9-16); Calcium 9.3 mg/dL (8.4-10.2); Carbon Dioxide 25 mmol/L (22-29); Chloride 105 mmol/L (96-108); Cholesterol 126 mg/dL (<200); Estimated Glomerular Filt Rate > 60; Glucose Fasting 130 mg/dL (60-99); HDL Cholesterol 33 mg/dL (>40); LDL Cholesterol Calculated 73 mg/dL (<100); Potassium 4.2 mmol/L (3.3-5.1); Sodium 139 mmol/L (135-145); Total Protein 7.3 g/dL (6.5-8.0); Triglycerides 104 mg/dL (<150)
[2023-11-09 11:03] LABS: Vitamin D 25-OH Total 27.7 ng/mL (>30)
[2023-11-09 11:09] LABS: Creatinine Urine 29.56 mg/dL; Microalbumin Urine < 5.0 mg/L
== END 2023-11-09 08:55 | disposition home or self-care (01) ==
LOC: HO.10HDL 08:54
PROVIDERS: Visit Provider Internal Medicine
DX: E55.9 Vitamin D deficiency, unspecified (principal); E78.5 Hyperlipidemia, unspecified; E11.9 Type 2 diabetes mellitus without complications
CPT/HCPCS: 36415; 80053; 80061; 82043; 82306; 82570

== ENCOUNTER 2023-11-10 10:02 | Outpatient (AMB) | payer MEDICARE, MEDICAID, SELFPAY ==
--- NOTE | 2023-11-10 10:05 | MHC.PC.OV ---
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: No Accompanied by: Self / Same As Patient Allergies No Known Allergies Allergy (Verified 11/10/23 10:27) Medication List - Last Reconciled 11/10/23 by Heather Ashraf MD atorvastatin 40 mg PO DAILY bisacodyl (Dulcolax (bisacodyl)) 10 mg (2 x 5 mg) PO ONCE 1 day blood sugar diagnostic (FreeStyle Lite Strips) Use 1 test strip once a day blood sugar diagnostic (Accu-Chek Guide test strips) Use 1 test strip once a day blood-glucose meter (FreeStyle Lite Meter kit) As directed blood-glucose meter (Accu-Chek Guide Glucose Meter) As directed cholecalciferol (vitamin D3) 25 mcg PO DAILY 90 days lancets (Accu-Chek Softclix Lancets) Use 1 lancet once a day lancets (FreeStyle Lancets) Use 1 lancet once a day lisinopril 2.5 mg PO DAILY metformin 500 mg PO BID omeprazole 20 mg PO DAILY pioglitazone 15 mg PO DAILY 90 days polyethylene glycol 3350 (Miralax) 238 grams PO ONCE risperidone 4 mg PO DAILY Tobacco use date assessed: 07/05/23 Dental Screening Dental Screen Date: 07/05/23 HPI HPI Comments History of Present Illness Details This is a 53-year-old male with mild developmental delayed, diabetes mellitus type 2, pure hypercholesterolemia, mild recurrent major depression and GERD that comes today for follow-up on his conditions. Depression stable with Risperdal and this is follow by Psychiatry. A1c within goal. LDL very close to goal and dietary changes were advised. GERD stable with PPIs. He declines colonoscopy at the moment. [facility] Medical History Mild recurrent major depression Hair loss Essential hypertension Developmental delay, mild Depression GERD (gastroesophageal reflux disease) Pure hypercholesterolemia Diabetes mellitus Surgical History History of tooth extraction Family History Father Prostate cancer Mother Hypertension Family/Other FH: mental illness Maternal Grandmother No problems noted. Maternal Grandfather No problems noted. Paternal Grandmother No problems noted. Paternal Grandfather No problems noted. Social History Housing: Apartment Alcohol intake: never Patient Tobacco Use Status: Never used Tobacco e-Cigarette/Vaping Use: Never Used Second Hand Smoke Exposure: No service: No Current occupational status: disabled Cognitive needs: No Hearing needs: No Vision needs: No Questionnaire Thrive Questionnaire Date Thrive assessed: 07/05/23 FABIENNE-7 AMB Questionnaire FABIENNE-7 Date FABIENNE - 7 assessed: 07/05/23 Source: Developed by Drs. Brandon Kim, Megan Murrieta, Vic Reyez and colleagues, with an educational nicholas from [employer]. Review of Systems Const All systems reviewed & are unremarkable except as noted in HPI and below Card Denies chest pain at rest, Denies chest pain with activity, Denies edema, Denies irregular heart rhythm, Denies claudication, Denies dyspnea, Denies dyspnea on exertion, Denies orthopnea, Denies paroxysmal nocturnal dyspnea and Denies slow heart rate Resp Denies cough, Denies dyspnea and Denies dyspnea on exertion GI Denies abdominal pain, Denies change in bowel habits, Denies excessive flatus, Denies nausea and Denies vomiting Physical exam (Primary Care) Vital Signs: Last Vital Signs BP 108/70 11/10/23 10:08 BMI result Body Mass Index 31.9 Tobacco/Smoking Status: Tobacco use Status Tobacco use date assessed 07/05/23 11/10/23 10:06 Patient Tobacco Use Status Never used Tobacco 11/10/23 10:06 Tobacco use type 02/08/23 09:36 e-Cigarette/Vaping Use Never Used 11/10/23 10:06 Thrive Assessment: Date of Thrive Assessment Date Thrive assessed 07/05/23 11/10/23 10:06 Resp Effort & Inspection: normal respiratory effort Auscultation: clear to auscultation bilaterally Cardio Jugular venous distension: no JVD Rate: regular rate Rhythm: regular rhythm Heart sounds: S1 normal heart sound present and S2 normal heart sound present Extrem General: Yes full ROM Results AMB Hemoglobin A1c AMB Hemoglobin A1c 6.9 % Last Edit by HELEN Crews on 11/10/23 10:15 Results Reviewed Results Reviewed: Laboratory Last Values Hgb A1c (Clinic) 6.9 % (4.0-6.0) H 11/10/23 10:05 Assessment and Plan Assessment & Plan (1) Diabetes mellitus: Code(s): E11.9 - Type 2 diabetes mellitus without complications Qualifiers: Diabetes mellitus type: type 2 Diabetes mellitus meterman insulin use: without half-way use Diabetes mellitus complication status: without complication Qualified Code(s): E11.9 - Type 2 diabetes mellitus without complications Plan: Continue Actos and metformin. A1c goal is equal or less than 7%. (2) Pure hypercholesterolemia: Code(s): E78.00 - Pure hypercholesterolemia, unspecified Plan: Continue statins. Advise low-cholesterol diet. LDL goal is less than 70. (3) GERD (gastroesophageal reflux disease): Code(s): K21.9 - Gastro-esophageal reflux disease without esophagitis Qualifiers: Esophagitis presence: esophagitis presence not specified Qualified Code(s): K21.9 - Gastro-esophageal reflux disease without esophagitis Plan: Continue PPIs. (4) Mild recurrent major depression: Code(s): F33.0 - Major depressive disorder, recurrent, mild Plan: Continue Risperdal. Follow-up with psychiatry. Orders: Orders AMB Hemoglobin A1c Today E11.9 - Type 2 diabetes mellitus without complications Complete Blood Count Auto Diff 4 Months D64.9 - Anemia, unspecified IRON PROFILE 4 Months D64.9 - Anemia, unspecified Microalbumin, Random (w Creat) 4 Months E11.9 - Type 2 diabetes mellitus without complications Vitamin D 25-OH Total 4 Months E55.9 - Vitamin D deficiency, unspecified Lipid Panel 4 Months E78.5 - Hyperlipidemia, unspecified Vitamin B12 and Folate 4 Months E53.8 - Deficiency of other specified B group vitamins Comprehensive [place]. Panel Fast 4 Months E11.9 - Type 2 diabetes mellitus without complications Review Patient declined Colonoscopy: 11/10/23 Coding Level of Care Code Est Pt Level 4 (91713) Complex EM visit Add On G2211 Diagnoses Type 2 diabetes mellitus without complication, without long-term current use of insulin E11.9 Diabetes mellitus type: type 2 Diabetes mellitus half-way insulin use: without half-way use Diabetes mellitus complication status: without complication Pure hypercholesterolemia E78.00 Gastroesophageal reflux disease, unspecified whether esophagitis present K21.9 Esophagitis presence: esophagitis presence not specified Mild recurrent major depression F33.0 Time Spent (min) 23
[2023-11-10 10:08] VITALS: BP 108/70; BMI 31.9
== END 2023-11-10 10:38 | disposition home or self-care (01) ==
PROVIDERS: PCP Internal Medicine; Visit Provider Internal Medicine
DX: E11.9 Type 2 diabetes mellitus without complications (principal); E78.00 Pure hypercholesterolemia, unspecified; K21.9 Gastro-esophageal reflux disease without esophagitis; F33.0 Major depressive disorder, recurrent, mild
CPT/HCPCS: 83036; 99214; G2211

== ENCOUNTER 2024-04-08 08:59 | Outpatient (REF) | payer MEDICARE, MEDICAID, SELFPAY ==
[2024-04-08 09:12] LABS: MANUAL DIFF FLAG NO
[2024-04-08 09:24] LABS: Basophils Percent Auto 0.6 % (0-2); Eosinophils Absolute Auto 0.4 X10*3/uL (0.0-0.4); Eosinophils Percent Auto 6.1 % (0-4); Hematocrit 44.7 % (42.0-52.0); Hemoglobin 14.7 g/dl (14.0-18.0); Imm Gran Abs Auto 0.02 X10*3/uL (0.00-0.03); Imm Gran Pct Auto 0.3 % (0.0-0.4); Lymphocytes Absolute Auto 1.8 X10*3/uL (1.2-4.9); Lymphocytes Percent Auto 27.7 % (20-40); Mean Corpuscular HGB Conc 32.9 g/dl (31.0-36.0); Mean Corpuscular Hemoglobin 30.7 pg (27.0-33.0); Mean Corpuscular Volume 93.3 fL (80.0-98.0); Mean Platelet Volume 8.8 fL (9.4-12.4); Monocytes Absolute Auto 0.6 X10*3/uL (0.1-1.2); Monocytes Percent Auto 9.4 % (2-11); Neutrophils Absolute Auto 3.7 x10*3/uL (2.0-8.3); Neutrophils Percent Auto 55.9 % (45-73); Platelet Count 241 X10*3/uL (160-400); Red Blood Count 4.79 X10*6/uL (4.60-5.80); Red Cell Distribution Width 13.6 % (11.0-16.0); White Blood Count 6.6 X10*3/uL (4.8-10.8)
[2024-04-08 10:34] LABS: Alanine Aminotransferase 53 U/L (0-40); Albumin Level 4.1 g/dL (3.5-5.0); Alkaline Phosphatase 76 U/L (39-117); Anion Gap 13 (12-20); Aspartate Amino Transferase 34 U/L (5-37); Blood Urea Nitrogen 20 mg/dL (9-16); Carbon Dioxide 24 mmol/L (22-29); Chloride 104 mmol/L (96-108); Cholesterol 121 mg/dL (<200); Estimated Glomerular Filt Rate > 60; Glucose Fasting 133 mg/dL (60-99); HDL Cholesterol 35 mg/dL (>40); Iron 90 mcg/dL (45-160); LDL Cholesterol Calculated 61 mg/dL (<100); Percent Iron Saturation 29 % (15-50); Potassium 4.1 mmol/L (3.3-5.1); Sodium 137 mmol/L (135-145); Total Iron Binding Capacity 312 mcg/dL (228-428); Total Protein 7.4 g/dL (6.5-8.0); Triglycerides 126 mg/dL (<150); Unsaturated Iron Binding 222 ug/dL; Vitamin D 25-OH Total 33.8 ng/mL (>30)
[2024-04-08 10:47] LABS: Folate 7.9 ng/mL (> or = 4.0); Vitamin B12 < 148 pg/mL (200-900)
[2024-04-08 11:26] LABS: Creatinine Urine 173.56 mg/dL; Microalbum/Creatinine Ratio Ur 5.1 ug/mg cr (<30)
== END 2024-04-08 09:00 | disposition home or self-care (01) ==
LOC: HO.LAB 08:59
PROVIDERS: PCP Internal Medicine; Visit Provider Internal Medicine
DX: E11.9 Type 2 diabetes mellitus without complications (principal); E55.9 Vitamin D deficiency, unspecified; E53.8 Deficiency of other specified B group vitamins; D64.9 Anemia, unspecified; E78.5 Hyperlipidemia, unspecified
CPT/HCPCS: 36415; 80053; 80061; 82043; 82306; 82570; 82607; 82746; 83540; 85025

== ENCOUNTER 2024-04-13 10:43 | Outpatient (AMB) | payer MEDICARE, MEDICAID, SELFPAY ==
--- NOTE | 2024-04-13 10:45 | MHC.PC.OV ---
Intake Visit Reasons: dm- [phone] Lead Generator Required: No Accompanied by: Self / Same As Patient Allergies No Known Allergies Allergy (Verified 04/13/24 10:46) Tobacco use date assessed: 07/05/23 Dental Screening Dental Screen Date: 04/13/24 Did you have a dental visit in the last 12 months?: No Did you have a dental problem in the last 6 months where you did not have access to dental care?: No Was dental information given to patient?: Patient has dentist HPI HPI Comments History of Present Illness Details The patient is a 53-year-old male presenting with the need for follow-up on current diagnoses and a vitamin B12 injection. The patient has been managing Type 2 Diabetes Mellitus with metformin, which he takes at a dose of 500 mg twice daily. Laboratory results indicated that his last hemoglobin A1c was 6.9%, and recent blood glucose levels have been stable around 133 mg/dL. He also has a history of Essential Hypertension, for which he is currently taking lisinopril 2.5 mg. The patient's renal function is normal with an estimated Glomerular Filtration Rate (GFR) over 60 mL/min/1.73 m?. There is a noted Vitamin B12 Deficiency, with the level less than 148 pg/mL, necessitating monthly intramuscular injections. His Vitamin D levels are normal. The patient also continues to manage Hyperlipidemia with observable liver enzyme elevation, likely attributable to cholesterol-lowering medication, although LDL levels are maintained at 61 mg/dL. GERD is treated with omeprazole for acid reflux symptoms. The patient is also being treated for Depression under psychiatric supervision and is currently prescribed risperidone. He denies tobacco and alcohol use. His nutrition includes poultry but lacks sufficient red meat intake, potentially contributing to his Vitamin B12 deficiency. [facility] Medical History Mild recurrent major depression Hair loss Essential hypertension Developmental delay, mild Depression GERD (gastroesophageal reflux disease) Pure hypercholesterolemia Diabetes mellitus Surgical History History of tooth extraction Family History Father Prostate cancer Mother Hypertension Family/Other FH: mental illness Maternal Grandmother No problems noted. Maternal Grandfather No problems noted. Paternal Grandmother No problems noted. Paternal Grandfather No problems noted. Social History Housing: Apartment Alcohol intake: never Patient Tobacco Use Status: Never used Tobacco e-Cigarette/Vaping Use: Never Used Second Hand Smoke Exposure: No service: No Current occupational status: disabled Cognitive needs: No Hearing needs: No Vision needs: No Questionnaire Thrive Questionnaire Date Thrive assessed: 07/05/23 FABIENNE-7 AMB Questionnaire FABIENNE-7 Date FABIENNE - 7 assessed: 07/05/23 Source: Developed by Drs. Brandon Kim, Megan Murrieta, Vic Reyez and colleagues, with an educational nicholas from [email or web address]. Review of Systems Const Details: - Constitutional: Denies any weight loss or fever. - Neurological: Reports chronic fatigue. - Psychiatric: Reports history of depression, currently under psychiatric care with medication. Physical exam (Primary Care) Tobacco/Smoking Status: Tobacco use Status Tobacco use date assessed 07/05/23 04/13/24 10:47 Patient Tobacco Use Status Never used Tobacco 04/13/24 10:47 Tobacco use type 02/08/23 09:36 e-Cigarette/Vaping Use Never Used 04/13/24 10:47 Thrive Assessment: Date of Thrive Assessment Date Thrive assessed 07/05/23 04/13/24 10:47 Telehealth Telehealth Telehealth Platform: Telephone Location of provider rendering services: practice address Location of patient: address on file Patient Identification confirmed using: Name, : Yes Telehealth method: voice only Patient verbally consented to treatment: Yes Patient verbally consented to billing insurance company: Yes Patient informed of any privacy concerns related to visit: Yes Minutes spent on Phone/Video with Pt.: 15 Coding Level of Care Code Tele Est Pt Level 4 (90532) Diagnoses Mild recurrent major depression F33.0 B12 deficiency anemia D51.9 Gastroesophageal reflux disease, unspecified whether esophagitis present K21.9 Esophagitis presence: esophagitis presence not specified Essential hypertension I10 Type 2 diabetes mellitus without complication, without long-term current use of insulin E11.9 Diabetes mellitus type: type 2 Diabetes mellitus terminal operator insulin use: without assisted use Diabetes mellitus complication status: without complication Pure hypercholesterolemia E78.00 Time Spent (min) 15 Assessment & Plan Assessment & Plan (1) Mild recurrent major depression: Code(s): F33.0 - Major depressive disorder, recurrent, mild Category: Medical (2) B12 deficiency anemia: Code(s): D51.9 - Vitamin B12 deficiency anemia, unspecified Category: Medical (3) GERD (gastroesophageal reflux disease): Code(s): K21.9 - Gastro-esophageal reflux disease without esophagitis Category: Medical Qualifiers: Esophagitis presence: esophagitis presence not specified Qualified Code(s): K21.9 - Gastro-esophageal reflux disease without esophagitis (4) Essential hypertension: Code(s): I10 - Essential (primary) hypertension Category: Medical (5) Diabetes mellitus: Code(s): E11.9 - Type 2 diabetes mellitus without complications Category: Medical Qualifiers: Diabetes mellitus type: type 2 Diabetes mellitus assisted insulin use: without assisted use Diabetes mellitus complication status: without complication Qualified Code(s): E11.9 - Type 2 diabetes mellitus without complications (6) Pure hypercholesterolemia: Code(s): E78.00 - Pure hypercholesterolemia, unspecified Category: Medical Plan - Continue lisinopril 2.5 mg daily for blood pressure control - Persist with omeprazole for GERD symptoms. - Advise dietary changes to include more red meat to support Vitamin B12 levels. - Encourage compliance with appointments and medication for Depression management. Patient was informed and verbally consented to the use of an ambient scribe for clinic note documentation during this visit. Orders: Orders Vitamin B12 and Folate 4 Months E53.8 - Deficiency of other specified B group vitamins Lipid Panel 4 Months E78.5 - Hyperlipidemia, unspecified Microalbumin, Random (w Creat) 4 Months R80.9 - Proteinuria, unspecified Intrinsic Factor Antibodies 4 Months D51.9 - Vitamin B12 deficiency anemia, unspecified Parietal Cell Antibody 4 Months D51.9 - Vitamin B12 deficiency anemia, unspecified Vitamin D 25-OH Total 4 Months E55.9 - Vitamin D deficiency, unspecified Comprehensive [place]. Panel Fast 4 Months E11.9 - Type 2 diabetes mellitus without complications
== END 2024-04-13 11:13 | disposition home or self-care (01) ==
LOC: HO.HMCH 10:43
PROVIDERS: PCP Internal Medicine; Visit Provider Internal Medicine
DX: E11.9 Type 2 diabetes mellitus without complications (principal); F33.0 Major depressive disorder, recurrent, mild; D51.9 Vitamin B12 deficiency anemia, unspecified; K21.9 Gastro-esophageal reflux disease without esophagitis; I10 Essential (primary) hypertension; E78.00 Pure hypercholesterolemia, unspecified

== ENCOUNTER → 2024-04-13 10:43 | Outpatient (BNVA) | payer MEDICARE, MEDICAID, SELFPAY | PROVIDERS: PCP Internal Medicine; Visit Provider Internal Medicine ==